=== PATIENT | male | born 1950 | race Two or more races ===

== ENCOUNTER 2019-10-08 23:38 | Inpatient (IN) | payer BC ==
[~2019-10-08] VITALS: Ht 177.8 cm; Wt 119.6 kg
[2019-10-09] MEDS ORDERED: ONDANSETRON 2MG/ML, 2ML IVPush ONE
[2019-10-09] MEDS ORDERED: SODIUM CHLORIDE FLUSH 10ML SYR IVF ONE
[2019-10-09] MEDS ORDERED: ONDANSETRON 2MG/ML, 2ML ONE (00:02)
[2019-10-09] MEDS ORDERED: MORPHINE SULFATE 4 MG/ML, 1ML ONE ×2 (00:03→02:09)
[2019-10-09] MEDS: MORPHINE SULFATE 4 MG/ML, 1ML IVPush PRN ×2 (00:06→02:12)
[2019-10-09 00:18] LABS: BASOPHILS # (AUTO) 0.02 x10^3/uL (0-0.1); BASOPHILS % (AUTO) 0 % (0-1); EOSINOPHILS # (AUTO) 0.12 x10^3/uL (0-0.4); EOSINOPHILS % (AUTO) 2 % (1-7); LYMPHOCYTES # (AUTO) 0.88 x10^3/uL (1-3.4); LYMPHOCYTES % (AUTO) 13 % (22-44); MD NO; MEAN CORPUSCULAR HGB CONC 33.6 g/dL (33.2-36.2); MEAN PLATELET VOLUME 7.7 fL (7.4-10.4); MONOCYTES # (AUTO) 0.43 x10^3/uL (0.2-0.8); MONOCYTES % (AUTO) 7 % (2-9); NEUTROPHILS # (AUTO) 5.16 x10^3/uL (1.8-6.8); NEUTROPHILS % (AUTO) 78 % (42-75); PLATELET COUNT 395 x10^3/uL (130-400); RED BLOOD COUNT 4.16 x10^6/uL (4.38-5.82); RED CELL DISTRIBUTION WIDTH 14.2 % (9.4-14.8)
[2019-10-09 00:27] LABS: ALANINE AMINOTRANSFERASE 22 U/L (12-78); ALBUMIN 3.8 g/dL (3.4-5.0); ANION GAP 7 mmol/L (5-15); CALCIUM 9.1 mg/dL (8.5-10.1); CHLORIDE 108 mmol/L (98-107); CREATININE 2.26 mg/dL (0.7-1.3)
[2019-10-09 00:30] LABS: ALKALINE PHOSPHATASE 29 U/L (45-117); BILIRUBIN,TOTAL 0.7 mg/dL (0.2-1.0); TOTAL PROTEIN 7.2 g/dL (6.4-8.2)
--- NOTE | 2019-10-09 01:27 | NUR ---
Akilah rn: Pt prompted for ua at this time. Attempting now.
[2019-10-09 01:41] LABS: MICROSCOPIC AUTO
[2019-10-09] MEDS ORDERED: SODIUM CHLORIDE 0.9% 1,000 ML IV ONE (02:00)
[2019-10-09] MEDS ORDERED: METRONIDAZOLE PMX 500MG/100ML 100 ML ONE (02:09)
[2019-10-09] MEDS ORDERED: LEVOFLOXACIN/PMX 750MG/150ML 150 ML ONE (02:09)
[2019-10-09] MEDS ORDERED: ACETAMINOPHEN 325 MG TABLET PO PRN (02:30)
[2019-10-09] MEDS ORDERED: ONDANSETRON 2MG/ML, 2ML IVPush PRN (02:30)
[2019-10-09] MEDS ORDERED: hydrALAzine 20 MG/ML, 1ML IVPush PRN (02:30)
[2019-10-09] MEDS ORDERED: ONDANSETRON ODT 4 MG PO PRN (02:30)
[2019-10-09] MEDS ORDERED: morphine SULFATE 10 MG/ML, 1ML IVPush PRN (02:30)
[2019-10-09] MEDS ORDERED: METRONIDAZOLE PMX 500MG/100ML 100 ML IV ONE (02:30)
[2019-10-09] MEDS ORDERED: OXYcodone IR 5MG TABLET PO PRN (02:30)
[2019-10-09] MEDS ORDERED: PROMETHAZINE 25 MG/ML, 1ML IM PRN (02:30)
[2019-10-09] MEDS ORDERED: LEVOFLOXACIN/PMX 750MG/150ML 150 ML IV ONE (02:30)
--- NOTE | 2019-10-09 02:37 | NUR ---
PATIENT UPDATED ON PLAN OF CARE. NO NOTED ACUTE DISTRESS. TOLERATING IV ANTIBIOTIC THERAPY WELL. GIVEN APPLE JUICE PER REQUEST. PATIENT WILL BE TRANSPORTED VIA [facility] WITH [facility] TO FLOOR. REPORT GIVEN TO ADMISSION RN.
[2019-10-09] MEDS ORDERED: ATOR10TA PO (02:54)
[2019-10-09] MEDS ORDERED: FENO145T32 PO (02:54)
[2019-10-09] MEDS ORDERED: TRIA1TAB3 PO (02:54)
[2019-10-09] MEDS ORDERED: BENA10TA59 PO (02:54)
[2019-10-09] MEDS ORDERED: ATOR-2 PO (02:54)
[2019-10-09] MEDS ORDERED: CIME200T6 PO (02:54)
[2019-10-09] MEDS ORDERED: BUPR100T11 PO (02:54)
[2019-10-09] MEDS ORDERED: HYDR50TA99 PO (02:54)
[2019-10-09] MEDS ORDERED: LEVO75TA PO (02:54)
[2019-10-09 03:03] LABS: FREE T4 (FREE THYROXINE) 0.89 ng/dL (0.76-1.46)
--- NOTE | 2019-10-09 03:04 | NUR ---
MEDICATION RECONCILE COMPLETED, CONTACTED FOR MEDICATION LIST. UPDATED ON PLAN OF CARE.
[2019-10-09 03:05] VITALS: BP 111/68
[2019-10-09] MEDS: CEFTRIAXONE PMX 2GM/50ML 50 ML IV SCH (03:43)
[2019-10-09] MEDS: SODIUM CHLORIDE 0.9% 1,000 ML IV SCH ×3 (03:44→18:12)
[2019-10-09] MEDS: PANTOPRAZOLE 40MG TABLET PO SCH (06:02)
[2019-10-09 06:20] VITALS: BP 117/61
[2019-10-09] MEDS: METRONIDAZOLE PMX 500MG/100ML 100 ML IV SCH ×2 (10:28→18:14)
[2019-10-09 12:47] VITALS: BP 106/65
[2019-10-09 19:08] VITALS: BP 113/72
[2019-10-10] MEDS: hydrOXyzine 50MG TABLET PO PRN ×2 (00:35→21:27)
[2019-10-10 00:50] VITALS: BP 127/78
[2019-10-10] MEDS: METRONIDAZOLE PMX 500MG/100ML 100 ML IV SCH ×3 (02:18→18:14)
[2019-10-10] MEDS: CEFTRIAXONE PMX 2GM/50ML 50 ML IV SCH (03:14)
[2019-10-10] MEDS: SODIUM CHLORIDE 0.9% 1,000 ML IV SCH (03:14)
[2019-10-10 06:25] LABS: CHLORIDE 110 mmol/L (98-107)
[2019-10-10 06:33] LABS: ALANINE AMINOTRANSFERASE 23 U/L (12-78); ALBUMIN 3.1 g/dL (3.4-5.0); ALKALINE PHOSPHATASE 26 U/L (45-117); ANION GAP 7 mmol/L (5-15); BILIRUBIN,TOTAL 0.8 mg/dL (0.2-1.0); CALCIUM 8.4 mg/dL (8.5-10.1); CHOLESTEROL, TOTAL 120 mg/dL (140-239); HDL CHOL % 51 % (26-37); HDL CHOLESTEROL (DIRECT) 61 mg/dL (40-60); LDL CHOLESTEROL,CALCULATED 40 mg/dL (54-169); LDL/HDL RATIO 0.7 (0.5-3.0); TOTAL PROTEIN 6.3 g/dL (6.4-8.2); TRIGLYCERIDES 96 mg/dL (50-200); VLDL CHOLESTEROL 19 mg/dL (0-25)
[2019-10-10 06:34] LABS: BASOPHILS # (AUTO) 0.03 x10^3/uL (0-0.1); BASOPHILS % (AUTO) 1 % (0-1); EOSINOPHILS # (AUTO) 0.22 x10^3/uL (0-0.4); EOSINOPHILS % (AUTO) 4 % (1-7); LYMPHOCYTES # (AUTO) 1.34 x10^3/uL (1-3.4); LYMPHOCYTES % (AUTO) 25 % (22-44); MD NO; MEAN CORPUSCULAR HEMOGLOBIN 31.2 pg (27.5-34.5); MEAN CORPUSCULAR HGB CONC 33.5 g/dL (33.2-36.2); MEAN PLATELET VOLUME 7.9 fL (7.4-10.4); MONOCYTES # (AUTO) 0.44 x10^3/uL (0.2-0.8); MONOCYTES % (AUTO) 8 % (2-9); NEUTROPHILS # (AUTO) 3.44 x10^3/uL (1.8-6.8); NEUTROPHILS % (AUTO) 63 % (42-75); PLATELET COUNT 310 x10^3/uL (130-400); RED BLOOD COUNT 3.58 x10^6/uL (4.38-5.82); RED CELL DISTRIBUTION WIDTH 13.8 % (9.4-14.8)
[2019-10-10] MEDS: LEVOTHYROXINE 75 MCG TABLET PO SCH (06:37)
[2019-10-10] MEDS: PANTOPRAZOLE 40MG TABLET PO SCH (06:37)
[2019-10-10 07:10] VITALS: BP 126/77
[2019-10-10] MEDS ORDERED: SODIUM CHLORIDE 0.9% 1,000 ML IV SCH (12:00)
[2019-10-10] MEDS ORDERED: DOCUSATE 50 MG/5 ML, 10ML UDC PO PRN (13:30)
[2019-10-10 14:19] VITALS: BP 120/72
[2019-10-10 19:49] VITALS: BP 144/86
[2019-10-10 21:26] LABS: OCCULT BLOOD POSITIVE (NEGATIVE)
[2019-10-11 00:15] VITALS: BP 120/76
[2019-10-11] MEDS: METRONIDAZOLE PMX 500MG/100ML 100 ML IV SCH ×2 (02:23→09:17)
[2019-10-11] MEDS: CEFTRIAXONE PMX 2GM/50ML 50 ML IV SCH (03:30)
[2019-10-11 06:03] LABS: BASOPHILS # (AUTO) 0.02 x10^3/uL (0-0.1); BASOPHILS % (AUTO) 1 % (0-1); EOSINOPHILS # (AUTO) 0.18 x10^3/uL (0-0.4); EOSINOPHILS % (AUTO) 4 % (1-7); LYMPHOCYTES # (AUTO) 1.61 x10^3/uL (1-3.4); LYMPHOCYTES % (AUTO) 33 % (22-44); MD NO; MEAN CORPUSCULAR HEMOGLOBIN 31.1 pg (27.5-34.5); MEAN CORPUSCULAR HGB CONC 33.2 g/dL (33.2-36.2); MEAN PLATELET VOLUME 7.8 fL (7.4-10.4); MONOCYTES # (AUTO) 0.48 x10^3/uL (0.2-0.8); MONOCYTES % (AUTO) 10 % (2-9); NEUTROPHILS # (AUTO) 2.53 x10^3/uL (1.8-6.8); NEUTROPHILS % (AUTO) 52 % (42-75); PLATELET COUNT 304 x10^3/uL (130-400); RED BLOOD COUNT 3.59 x10^6/uL (4.38-5.82); RED CELL DISTRIBUTION WIDTH 13.8 % (9.4-14.8)
[2019-10-11 06:15] LABS: % IRON SATURATION 15 % (20-55); ANION GAP 7 mmol/L (5-15); CALCIUM 8.7 mg/dL (8.5-10.1); CHLORIDE 111 mmol/L (98-107); CREATININE 1.38 mg/dL (0.7-1.3); IRON LEVEL 56 mcg/dL (65-175); TOTAL IRON BINDING CAPACITY 370 mcg/dL (250-450)
[2019-10-11 06:30] VITALS: BP 124/82
[2019-10-11] MEDS ORDERED: POTASSIUM CHLORIDE 10% 40 MEQ/30 ML UDC PO ONE (06:30)
[2019-10-11] MEDS: LEVOTHYROXINE 75 MCG TABLET PO SCH (06:32)
[2019-10-11] MEDS: PANTOPRAZOLE 40MG TABLET PO SCH (06:32)
[2019-10-11] MEDS ORDERED: POTASSIUM CHLORIDE 10% 20 MEQ/15 ML UDC ONE (06:34)
[2019-10-11 07:07] VITALS: BP 127/74
[2019-10-11] MEDS ORDERED: metroNIDAZOLE 500 MG TABLET PO SCH (11:30)
[2019-10-11] MEDS ORDERED: CEFDINIR 300 MG CAPSULE PO SCH (11:30)
[2019-10-11 13:12] VITALS: BP 134/79
[2019-10-11] MEDS ORDERED: DOCU50LI26 PO (14:32)
[2019-10-11] MEDS ORDERED: CEFD300C37 PO (14:32)
[2019-10-11] MEDS ORDERED: METR500T PO (14:32)
[2019-12-16] MEDS ORDERED: DOXYCYCLINE PO (11:00)
[2019-12-16] MEDS ORDERED: TRIAMTERENE HCTZ PO (11:00)
[2019-12-16] MEDS ORDERED: HYDROXYZINE PO (11:00)
[2019-12-16] MEDS ORDERED: OMEP-110 PO (11:00)
[2019-12-16] MEDS ORDERED: BUPROPION PO (11:00)
[2019-12-16] MEDS ORDERED: AMLODIPINE PO (11:00)
== END 2019-10-11 17:00 | disposition home or self-care (01) | DRG 395 ==
LOC: ED 10-09 01:04 → EDIP 10-09 02:21 → 3N 10-09 02:46 → DCLOUNGE 10-11 16:55
PROVIDERS: ADMIT Internal Medicine; ATTEND Internal Medicine
DX: K55.039 Acute (reversible) ischemia of large intestine, extent unspecified (principal); D64.9 Anemia, unspecified; E03.9 Hypothyroidism, unspecified; E66.9 Obesity, unspecified; E78.5 Hyperlipidemia, unspecified; I12.9 Hypertensive chronic kidney disease with stage 1 through stage 4 chronic kidney disease, or unspecified chronic kidney disease; K21.9 Gastro-esophageal reflux disease without esophagitis; K57.30 Diverticulosis of large intestine without perforation or abscess without bleeding; K59.09 Other constipation; N18.3 Chronic kidney disease, stage 3 (moderate); R73.03 Prediabetes; Z96.653 Presence of artificial knee joint, bilateral; Z68.37 Body mass index [BMI] 37.0-37.9, adult; Z88.0 Allergy status to penicillin; Z88.2 Allergy status to sulfonamides; Z80.9 Family history of malignant neoplasm, unspecified
CPT/HCPCS: 36415; 74176; 80048; 80053; 80061; 81001; 82272; 83036; 83540; 83550; 83605; 83690; 83735; 84439; 84443; 85025; 87086; 93005; 96374; 96375; 96376; G0378; J0696; J2405; J2270; J7030

== ENCOUNTER → 2019-12-12 | Outpatient (CLI) | payer BC, OTHER ==
[~2019-12-12] MED LIST: AMLODIPINE PO; ATOR-2 PO; ATOR10TA PO; BENA10TA59 PO; BUPR100T11 PO; BUPROPION PO; CEFD300C37 PO; CIME200T6 PO; DOCU50LI26 PO; DOXYCYCLINE PO; EPINEPHRINE SYRINGE 0.1 MG/ML, 10ML ONE; FENO145T32 PO; HYDR50TA99 PO; HYDROXYZINE PO; LEVO75TA PO; METR500T PO; OMEP-110 PO; TRIA1TAB3 PO; TRIAMTERENE HCTZ PO
[2019-12-12 14:58] LABS: ANION GAP 6 mmol/L (5-15); CALCIUM 9.5 mg/dL (8.5-10.1); CHLORIDE 107 mmol/L (98-107)
[2019-12-12 15:03] LABS: ALANINE AMINOTRANSFERASE 24 U/L (12-78); ALKALINE PHOSPHATASE 34 U/L (45-117); BILIRUBIN,TOTAL 0.5 mg/dL (0.2-1.0); CREATININE 2.07 mg/dL (0.7-1.3); TOTAL PROTEIN 7.6 g/dL (6.4-8.2)
== END | disposition home or self-care (01) ==
LOC: STAR 13:09
PROVIDERS: ATTEND Internal Medicine Geriatric Medicine
DX: Z01.812 Encounter for preprocedural laboratory examination (principal); Z20.828 Contact with and (suspected) exposure to other viral communicable diseases; K31.89 Other diseases of stomach and duodenum
CPT/HCPCS: 36415; 80053; 87635

== ENCOUNTER 2020-03-31 05:53 | Day surgery (SDC) | payer BC, OTHER ==
[~2020-03-31] VITALS: Ht 177.8 cm; Wt 116.0 kg
[~2020-03-31 05:53] MED LIST changes: -EPINEPHRINE SYRINGE 0.1 MG/ML, 10ML ONE
[2020-03-31 06:55] VITALS: BP 113/78
[2020-03-31] MEDS ORDERED: SODIUM CHLORIDE 0.9% 1,000 ML IV SCH (07:30)
[2020-03-31 07:50] LABS: INTERNATIONAL NORMALIZED RATIO 0.99 (0.93-1.1); PROTHROMBIN TIME 10.5 Seconds (9.6-11.5)
[2020-03-31] MEDS ORDERED: NALOXONE 1 MG/ML, 2ML ONE (08:12)
[2020-03-31] MEDS ORDERED: FENTANYL PF 100 MCG/2ML ONE (08:12)
[2020-03-31] MEDS ORDERED: FLUMAZENIL 0.1 MG/1 ML, 5ML ONE (08:12)
[2020-03-31] MEDS ORDERED: MIDAZOLAM 1 MG/ML, 5ML ONE (08:12)
== END 2020-03-31 10:45 | disposition home or self-care (01) ==
LOC: OUT 05:53 → EDSTATUS 08:00 → OUT 10:45
PROVIDERS: ATTEND Internal Medicine Nephrology
DX: I12.9 Hypertensive chronic kidney disease with stage 1 through stage 4 chronic kidney disease, or unspecified chronic kidney disease (principal); N18.4 Chronic kidney disease, stage 4 (severe); F32.9 Major depressive disorder, single episode, unspecified; E03.9 Hypothyroidism, unspecified; E78.00 Pure hypercholesterolemia, unspecified; F41.9 Anxiety disorder, unspecified; Z88.0 Allergy status to penicillin; Z88.1 Allergy status to other antibiotic agents; Z88.2 Allergy status to sulfonamides; Z79.899 Other long term (current) drug therapy; Z98.890 Other specified postprocedural states; Z82.49 Family history of ischemic heart disease and other diseases of the circulatory system; Z83.3 Family history of diabetes mellitus
CPT/HCPCS: 36415; 50200; 77012; 85610; 88300; 99156; 99157; J2250; J3010; J7030; J2310